=== PATIENT | female | born 1970 | race Caucasian/White ===

== ENCOUNTER 2020-07-25 07:06 | Emergency (ER) | payer OTHER, SELFPAY ==
--- NOTE | 2020-07-25 07:15 | ED.BACK ---
HPI - Back Pain/Injury General Chief Complaint: Back Pain/Injury Stated Complaint: back pain Time Seen by Provider: 07/25/20 07:15 History of Present Illness HPI Narrative: 49 yo female with h/o melanoma presents to the ED for back pain. Right low back pain for the past week. Worse after a fall yesterday. worse with standing upright or leg in full extension. She does report mild right leg weakness, but only in certain positions. She has tried ibuprofen, norco and an adjustment by her , a chiropractor. She had x-rays done before coming t the ED which are reported to be negative. Related Data Home Medications Medication Instructions Recorded Confirmed dextroamphetamine-amphetamine 25 mg PO DAILY 06/18/19 06/18/19 [Adderall XR] hydrocodone-acetaminophen [[place]] 06/18/19 Allergies Allergy/AdvReac Type Severity Reaction Status Date / Time tramadol [From Ultram] Allergy Intermediate Hives Verified 07/25/20 07:20 Sulfa (Sulfonamide Allergy Rash Verified 07/25/20 07:20 Antibiotics) Review of Systems Review of Systems: All systems reviewed & are unremarkable except as noted in HPI and below Constitutional: Constitutional: Denies chills and Denies fever(s) Eyes: Eyes: Reports no additional eye complaints Cardiovascular: Cardiovascular: Denies chest pain Respiratory: Respiratory: Denies dyspnea Gastrointestinal: Gastrointestinal: Denies abdominal pain, Denies constipation, Denies diarrhea, Denies nausea and Denies vomiting Genitourinary: Genitourinary: Denies hematuria, Denies nocturia, Denies dysuria and Denies urinary incontinence Musculoskeletal: Musculoskeletal: Reports back pain Neurologic: Denies numbness and Reports weakness [facility] Past Medical History Medical History (Updated 07/26/20 @ 00:00 by [facility]) DVT (deep venous thrombosis) Melanoma 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 Surgical History Surgical History (Updated 06/18/19 @ 22:35 by Ward Mittal) History of orthopedic surgery Social History Social History (Updated 06/18/19 @ 22:35 by Ward Mittal) Smoking status: Never smoker Alcohol intake: current Gender identity (if verbalized by the patient): Female Exam Const: General: healthy appearing, no acute distress and alert Orientation/consciousness: patient oriented x3 HENMT: Head: normal to inspection Resp: Effort & Inspection: normal respiratory effort Cardio: Other: 2+ right DP Back/Spine/Pelvis: Thoracic/Lumbar Spine: thoracic and lumbar spine normal to inspection, lumbar spinal tenderness at L4 and at L5 and straight leg raise positive (bilaterally) Skin: General skin exam: normal color Rashes: no rashes Wounds: no wounds Neuro: General: patient oriented x3, moves all extremities, no meningeal signs, no focal motor deficits and CN's II-XI intact bilaterally Speech: normal speech Other: Strength grossly christina throughout. Stable, but guarded gait Extrem: General: normal to inspection Course Vital Signs Vital signs: Vital Signs Temperature 36.3 C L 07/25/20 07:16 Pulse Rate 85 07/25/20 07:16 Respiratory Rate 18 07/25/20 07:16 Blood Pressure 126/75 07/25/20 07:16 Pulse Oximetry 100 07/25/20 07:16 Temperature 36.3 C L 07/25/20 08:23 Pulse Rate 76 07/25/20 09:06 Respiratory Rate 18 07/25/20 09:06 Blood Pressure 132/78 07/25/20 09:06 Pulse Oximetry 98 07/25/20 09:06 MDM - Back Pain/Injury MDM Narrative Medical decision making narrative: Pain consistent with musculoskeletal. Reportedly had negative x-rays. Feeling better and reporting no leg weakness after treatment. I will provide a short course of valium and a medrol dose pack. Medical Records Attestation: I reviewed the patient's medical records. Discharge Plan Discharge Clinical Impression: Strain of lumbar region Patient Disposition: Home, Self-Care Condition: Stable Instructions: Antibiotic Form, Low Back Strain
[2020-07-25 07:16] VITALS: BP 126/75; PULSE 85; RESP 18; TEMP 36.3; O2SAT 100
[2020-07-25] MEDS: diazePAM INJ (*CRX) 10 MG/2 ML SYRINGE 5 MG IM (07:53)
[2020-07-25] MEDS: KETOROLAC (*BKC) 60 MG/2 ML VIAL IM (07:53)
[2020-07-25 08:23] VITALS: TEMP 36.3
[2020-07-25 09:06] VITALS: BP 132/78; PULSE 76; RESP 18; O2SAT 98
== END 2020-07-25 09:07 | disposition home or self-care (01) ==
PROVIDERS: Emergency Provider Emergency Medicine; PCP Physician Assistant
DX: S39.012A Strain of muscle, fascia and tendon of lower back, initial encounter (principal); Z86.718 Personal history of other venous thrombosis and embolism; Z85.820 Personal history of malignant melanoma of skin; Z92.21 Personal history of antineoplastic chemotherapy; W19.XXXA Unspecified fall, initial encounter
CPT/HCPCS: 96372; 99284; J1885; J3360

== ENCOUNTER 2021-11-15 14:33 | Emergency (ER) | payer BC, SELFPAY ==
--- NOTE | 2021-11-15 14:50 | ED.URI ---
HPI - URI/Sore Throat General Chief Complaint: Upper Respiratory Infection Stated Complaint: FEVER 99.8/COUGH/CONGESTION Time Seen by Provider: 11/15/21 14:51 Source: patient and RN notes reviewed History of Present Illness HPI Narrative: Patient is a 51-year-old female who presents the urgent care with complaints of cough and congestion since . Patient states she has been taking [id number] cough medication, DayQuil, Mucinex and Tylenol. Patient states her temperature has not been above 99. Denies of any recent ill exposures and states that she had a negative COVID test. No other acute complaints. No acute distress noted. Patient aware of the plan of care. Some parts of this dictation were generated by voice recognition software and may contain typographical and/or grammatical inaccuracies. Related Data Home Medications Medication Instructions Recorded Confirmed dextroamphetamine-amphetamine ER 25 mg PO DAILY 06/18/19 06/18/19 25 mg 24hr capsule,extend release (Adderall XR) hydrocodone 5 mg-acetaminophen 325 06/18/19 mg tablet ([place]) Allergies Allergy/AdvReac Type Severity Reaction Status Date / Time tramadol [From Ultram] Allergy Intermediate Hives Verified 11/15/21 14:55 Sulfa (Sulfonamide Allergy Rash Verified 11/15/21 14:55 Antibiotics) Review of Systems Review of Systems: CONSTITUTIONAL: Denies fever, chills, or sweats. EYES: Denies visual changes, redness, or discharge. ENT: Denies rhinorrhea, congestion, sore throat, or otalgia. CARDIOVASCULAR: Denies chest pain, palpitations, or edema. RESPIRATORY: Reports of chest congestion and cough without dyspnea GENITOURINARY: Denies dysuria or hematuria. SKIN: Denies rash or itching. MUSCULOSKELETAL: Denies back pain, joint pain, or myalgia. NEUROLOGIC: Denies headache, numbness, or weakness. All other systems reviewed are negative, except as documented in HPI. 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 Gender identity (if verbalized by the patient): Female Comments At the time of my signature, I reviewed and agree with the nursing past medical, surgical, social, and family history. There is no relevant family history pertinent to the patient complaint. Exam Narrative: GENERAL: This is a well-nourished, well-developed patient, in no apparent distress. HEAD: normocephalic, atraumatic. EYES: PERRL. Sclera clear/white. Vision is grossly intact. EARS: External ears normal, auditory canals clear and without drainage, mild bilateral effusions without otitis, TMs normal without perforation. Hearing grossly intact. NOSE: External nose normal with no obvious nasal discharge, nares without redness, no rhinorrhea. THROAT: Mucous membranes moist, posterior pharynx clear. Moderate postnasal drainage NECK: Neck supple CARDIOVASCULAR: Regular rate and rhythm without murmurs, gallops, or rubs. RESPIRATORY: Harsh cough noted on exam. Slight crackles to left lower, cleared with cough. Otherwise clear throughout SKIN: warm, intact with no suspicious lesions or rash, good texture and turgor. NEURO: awake, alert, and oriented to person, place and time. There were no obvious focal neurologic abnormalities. EXTREMITIES: No clubbing, cyanosis, or edema. Course Course Level of Care: Express Care Visit Vital Signs Vital signs: Vital Signs Temperature 97.2 F L 11/15/21 14:54 Pulse Rate 74 11/15/21 14:54 Respiratory Rate 16 11/15/21 14:54 Blood Pressure 113/80 11/15/21 14:54 Pulse Oximetry 100
[2021-11-15 14:54] VITALS: BP 113/80; PULSE 74; RESP 16; TEMP 36.2; O2SAT 100
== END 2021-11-15 15:26 | disposition home or self-care (01) ==
PROVIDERS: Emergency Provider Nurse Practitioner Family
DX: J40 Bronchitis, not specified as acute or chronic (principal); Z86.718 Personal history of other venous thrombosis and embolism; Z85.820 Personal history of malignant melanoma of skin
CPT/HCPCS: 99213; G0463

== ENCOUNTER 2022-04-29 02:33 | Emergency (ER) | payer BC, SELFPAY ==
--- NOTE | ~2022-04-29 | XR_ITS ---
EXAMINATION: XR ankle LT min 3V DATE: 04/29/2022 03:02 INDICATION: Left ankle pain and swelling, initial encounter TECHNIQUE: Anteroposterior, lateral, mortise, and additional oblique view of the ankle were obtained. COMPARISON: None. FINDINGS: There is an acute, traumatic, closed, oblique fracture of the distal fibula extending to th e level of the tibial plafond. The distal fracture fragment is laterally displaced by approximately 2 mm. There is mild widening of the tibiotalar joint space near the medial malleolus. No additional fr acture is identified. Ankle soft tissue swelling is present. IMPRESSION: 1. Acute fracture of the distal fibula extending to the level of the tibial plafond. Reviewed, dictated and finalized at location B. Y LEVEL [employer] IMPRESSION: 1. Acute fracture of the distal fibula extending to the level of the tibial juan daniel fond.
[2022-04-29 02:35] VITALS: PULSE 64; RESP 20; TEMP 37; O2SAT 96
--- NOTE | 2022-04-29 03:03 | ED.LOWEXIN ---
HPI - Extremity Injury (Lower) General Chief Complaint: Extremity Injury, Lower Stated Complaint: Foot pain Source: patient and family Mode of arrival: wheelchair Limitations: no limitations History of Present Illness HPI Narrative: this is a 51-year-old female that presents with left ankle pain with swelling after she fell out of bed and injured her left ankle causing pain and swelling in the medial malleolus has decreased range of motion secondary to pain and swelling with numbness and tingling in her toes has a good brisk radial pulse on the left. complaint: ankle injury Onset (ago): hour(s) Injury: Left: ankle ( pain and swelling) Type of Injury: blunt Place: home Severity: moderate Severity scale (1-10): 8 Relieving factors: cold therapy, immobilization and rest Exacerbating factors: weight bearing, movement and palpation Context: fall Associated symptoms: swelling and tingling Related Data Home Medications Medication Instructions Recorded Confirmed dextroamphetamine-amphetamine ER 25 mg PO DAILY 06/18/19 04/29/22 25 mg 24hr capsule,extend release (Adderall XR) hydrocodone 5 mg-acetaminophen 325 1 tablet PO Q6-12H PRN Pain 06/18/19 04/29/22 mg tablet ([place]) Allergies Allergy/AdvReac Type Severity Reaction Status Date / Time tramadol [From Ultram] Allergy Intermediate Hives Verified 11/15/21 14:55 Sulfa (Sulfonamide Allergy Rash Verified 11/15/21 14:55 Antibiotics) Review of Systems Review of Systems: All systems reviewed & are unremarkable except as noted in HPI and below PMFSH Past Medical History Medical History DVT (deep venous thrombosis) Melanoma 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 Gender identity (if verbalized by the patient): Female Exam Const: General: healthy appearing Nutritional Appearance: well nourished Limitations: no limitations HENMT: Face and sinus: normal facial exam Mouth: Yes Normal oral and palatal mucosa present Eyes: Conjunctivae: conjunctivae normal Pupils: Equal, round and reactive pupils present Neck: Neck: normal visual inspection Chest: Chest palpation & inspection: normal inspection of the chest Resp: Effort & Inspection: normal respiratory effort Auscultation: clear to auscultation bilaterally Cardio: Rate: regular rate Rhythm: regular rhythm GI: GI Palp: Yes Soft to palpation Auscultation: normal bowel sounds : General: Yes bladder normal to palpation Urinary Catheter: Urinary Catheter: patent and draining Back/Spine/Pelvis: Back: no CVA tenderness Skin: Rashes: no rashes Wounds: no wounds Neuro: General: patient oriented x3 and no meningeal signs Speech: normal speech Extrem: Other: Swelling intestine tenderness in the left distal ankle and the medial malleolus Psych: Mental Status: mental status grossly normal Affect: normal affect Course Course Emergency Course: immobilizer patient, x-ray reviewed and shows a fracture minimally displaced at the distal left fibula, Toradol was given [place] IM Vital Signs Vital signs: Vital Signs Temperature 37.0 C 04/29/22 02:35 Pulse Rate 64 04/29/22 02:35 Respiratory Rate 20 04/29/22 02:35 Pulse Oximetry 96 04/29/22 02:35 Oxygen Delivery Room Air 04/29/22 02:35 Temperature 37.0 C 04/29/22 02:35 Pulse Rate 64 04/29/22 02:35 Respiratory Rate 20 04/29/22 02:35 Pulse Oximetry 96 04/29/22 02:35 Oxygen Delivery Room Air 04/29/22 02:35 Critical Care Time Critical Care Time Critical Care Time: No Discharge Plan Discharge Clinical Impression: Ankle fracture,
[2022-04-29] MEDS: KETOROLAC (*BKC) 60 MG/2 ML VIAL IM (03:04)
[2022-04-29 03:08] VITALS: PULSE 68; RESP 16; TEMP 36.6; O2SAT 96
== END 2022-04-29 03:21 | disposition home or self-care (01) ==
PROVIDERS: Emergency Provider Emergency Medicine
DX: S82.892A Other fracture of left lower leg, initial encounter for closed fracture (principal); W06.XXXA Fall from bed, initial encounter
CPT/HCPCS: 73610; 96372; 99284; J1885

== ENCOUNTER 2022-07-12 16:31 | Outpatient (CLI) | payer BC, SELFPAY ==
--- NOTE | ~2022-07-12 | CT_ITS ---
CT OF left ankle EXAMINATION: CT ankle LT wo con DATE: 07/12/2022 17:05 INDICATION: Chronic left ankle pain TECHNIQUE: Computed tomography (CT) of the left ankle was performed without intravenous contrast. Aut omated exposure control and iterative reconstruction technique were employed. The dose-length product was 564.65 mGy-cm. COMPARISON: X-ray left ankle 04/29/2022 FINDINGS: Limitations: None Bones: Patchy decreased mineralization. Uncomplicated screw and plate fixation of the distal fibula. Uncomplicated appearing fixation of the syndesmosis. Old healed distal fibular fracture with osseous bridging. No acute fracture. Soft Tissues:The flexor and extensor tendons are grossly intact. Dorsal subcutaneous edema, overlying the midfoot. Fluid: Small volume ankle joint fluid. IMPRESSION: Uncomplicated fixation of the distal fibula and syndesmosis. No acute osseous finding. Subcutaneous e lopez overlying the midfoot. 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 Reviewed, dictated and finalized at location K. A CENTER SPECIALIST IMPRESSION: Uncomplicated fixation of the distal fibula and syndesmosis. No acute osseous f inding. Subcutaneous edema overlying the midfoot. 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
== END 2022-07-12 16:32 | disposition home or self-care (01) ==
LOC: ANHIMG 16:44
DX: M25.572 Pain in left ankle and joints of left foot (principal); R60.9 Edema, unspecified
CPT/HCPCS: 73700

== ENCOUNTER 2024-07-05 14:07 | Outpatient (CLI) | payer OTHER, SELFPAY ==
--- NOTE | ~2024-07-05 | CT_ITS ---
EXAMINATION: CT diagnostic chest wo con DATE: 07/05/2024 14:42 INDICATION: Chronic cough TECHNIQUE: Computed tomography (CT) of the chest was performed without intravenous contrast. Automate d exposure control and iterative reconstruction technique were employed. The dose-length product was 129.05 mGy-cm. COMPARISON: X-ray chest 06/18/2019. FINDINGS: CHEST: Thoracic aorta: No significant dilation or calcification. Lung parenchyma and airways: Lungs and airways are clear. Thoracic inlet, axillae and chest wall: No thyroid or soft tissue mass. Bilateral breast implants. Le ft axillary lymphadenopathy. Mediastinum: No mass or lymphadenopathy. Heart and pericardium: Normal heart size. No pericardial effusion. Coronary artery calcifications: Absent. Pleura: No effusion or mass. Upper abdomen: Status post cholecystectomy. Thoracic bones: No acute osseous finding in the chest. IMPRESSION: Left axillary lymphadenopathy. No other acute or chronic thoracic process detected. Reviewed, dictated and finalized at location K. OR [employer] SOFTWARE ENGINEER IMPRESSION: Left axillary lymphadenopathy. No other acute or chronic thoracic process detec dimitri.
== END 2024-07-05 14:08 | disposition home or self-care (01) ==
LOC: ANHIMG 14:18
DX: R05.3 Chronic cough (principal); R59.0 Localized enlarged lymph nodes
CPT/HCPCS: 71250